=== PATIENT | female | born 1955 | race Caucasian/White ===

== ENCOUNTER 2017-06-19 07:13 | Day surgery (SDC) | payer OTHER ==
[~2017-06-19 07:13] MED LIST: Buffered Lidocaine 0.9% SYRIN* 5 ML/SYR SYRINGE INTRADERM ONE
[2017-06-19] MEDS ORDERED: ceFAZolin 2 GM PREMIX (*) 2 GM/50 ML BAG IVPB ONE (07:28)
[2017-06-19] MEDS ORDERED: fentaNYL* 50 MCG/ML 2 ML VIAL (100 MCG VIAL) ONE (08:01)
[2017-06-19] MEDS ORDERED: Midazolam* 1 MG/ML 2 ML VIAL (2 MG) ONE (08:02)
[2017-06-19] MEDS ORDERED: Bupivacaine 0.5% SDV PF* 10-30ML VIAL ONE (08:16)
[2017-06-19] MEDS ORDERED: EPINEPHRINE 1 MG/ML 1 ML VIAL ONE (08:16)
[2017-06-19] MEDS ORDERED: Lidocaine 2% PF * 5 ML VIAL ONE (08:34)
[2017-06-19] MEDS ORDERED: Famotidine IV* 10 MG/ML 2 ML (20 mg) ONE (08:50)
[2017-06-19] MEDS ORDERED: Dexamethasone IV* 4 MG/ML 1 ML (4 MG) ONE (08:50)
[2017-06-19] MEDS ORDERED: Ketorolac INJ* 30 MG/ML 1 ML VIAL ONE (08:50)
[2017-06-19] MEDS ORDERED: Propofol* 10 MG/ML 20 ML BTL IV PUSH ONE (08:50)
[2017-06-19] MEDS ORDERED: HYDROmorphone INJ* 1 MG/ML CARPUJECT SYRINGE ONE (08:58)
[2017-06-19] MEDS ORDERED: Ondansetron INJ* 2 MG/ML VIAL IV PRN (09:21)
[2017-06-19] MEDS ORDERED: PROCHLORPERAZINE INJ 5 MG/ML 2 ML VIAL IV PRN (09:21)
[2017-06-19] MEDS ORDERED: HYDROcodone/ACETAMIN 5-325 MG* 1 TAB PO PRN (09:21)
[2017-06-19] MEDS ORDERED: fentaNYL* 50 MCG/ML 2 ML VIAL (100 MCG VIAL) IV PRN (09:21)
[2017-06-19] MEDS ORDERED: DiMENhydriNATE IV* 50 MG/ML VIAL IV PUSH PRN (09:21)
[2017-06-19] MEDS ORDERED: Acetaminophen TAB* 325 MG PO PRN (09:21)
[2017-06-19] MEDS ORDERED: Naloxone* 0.4 MG/ML 1 ML VIAL IV PRN (09:21)
[2017-06-19] MEDS ORDERED: HYDROcodone/ACETAMIN 5-325 MG* 1 TAB ONE (10:00)
[2017-06-19 10:32] VITALS: BP 135/83
--- NOTE | 2017-06-19 20:39 | OP ---
OPERATIVE REPORT: DATE OF OPERATION: 06/19/17 DATE OF : 57 SURGEON: Darci Damon MD WET CLEANER MACHINE: JOE Ortega A physician bricklayer's assistant was required for positioning, knee manipulation, and assistance with instrument ation. ANESTHESIOLOGIST: Michael Rodríguez MD ANESTHESIA: General anesthesia, local anesthesia, 15 cc of 0.5% Marcaine without epinephrine, subcut aneously. PRE-OP DIAGNOSIS: Right knee medial meniscus tear. POST-OP DIAGNOSIS: Right knee medial meniscus tear. OPERATIVE PROCEDURE: 1. Right knee arthroscopic partial medial meniscectomy. 2. Right knee anterior synovectomy, excision of plica. IV FLUIDS: 1200 cc crystalloid. ANTIBIOTICS: Ancef 2 g IV. SPECIMEN: None. IMPLANTS: None. TOURNIQUET TIME: 29 minutes at 300 mmHg. COMPLICATIONS: None. ESTIMATED BLOOD LOSS: 0 cc. 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 As detailed in my history and physical, the patient responded insufficiently to nonoperative manageme nt, full spectrum and opted for surgery. The patient had symptoms consistent with a displaced meniscal tear and MRI showed a displaced fragmen t in the inferomedial gutter from the medial meniscus. I discussed with the patient the risks and potential complications of surgery including bleeding, inf ection, nerve or blood vessel injury, blood clot, knee pain, stiffness, osteoarthritis. DESCRIPTION OF PROCEDURE: Preoperative written consent was obtained. Operative extremity was marked in preoperative holding. The patient was taken to the operating room and placed supine on the opera ting room table. The patient was sedated and LMA was placed by Anesthesia. Tourniquet was placed ar ound the proximal thigh, right but not inflated. The right lower extremity was placed in a distal [facility] circumferential mendoza for arthroscopy. The table was elevated and the foot of the table was gisela pped. The right lower extremity was prepped with ChloraPrep. The knee was draped. Surgical time-ou t performed. Esmarch was applied and tourniquet was elevated to 300 mmHg. An anterolateral knee arthroscopy portal was established using standard technique. Diagnostic arthros copy was commenced. Significant synovitis was noted about the patellofemoral compartment, which was noted to be somewhat tight, without much room. There was a medial plica noted. I then proceeded to the medial compartment. There were some diffuse grade 1 and some grade 2 changes to the medial femora l condyle. I examined medial meniscus. It looked like there was some irregularity about the junctio n of the body in the posterior horn as suspected preoperatively. I established the anteromedial knee arthroscopy portal under direct visualization. I entered the prob e. The probe removed displaced meniscal fragment from inferior into medial compartment. I took phot ographs. I debrided medial meniscus back to a stable rim of tissue working through the anteromedial and then a nterolateral portal. I confirmed the stability of the meniscus. There was vertical piece of tissue just inferior to the area of the meniscal tear that may have repre sented a component of deep MCL versus some additional displaced meniscal fragment. I cut that with m eniscal biter and I cleared no further displaced meniscal tear in the inferomedial gutter. Next, I continued diagnostic arthroscopy. I removed some anterior synovium, inflamed and ligamentum mucosa in the intercondylar notch. I looked at the lateral compartment and no pathology there, no me niscal tear or articular cartilage injury. I then returned to the patellofemoral compartment. Still much of synovitis there. With the knee in some flexion, removed some synovitis. Then, enabled excell ent visualization of patellofemoral compartment. Only articular cartilage damage was noted on the fa r medial part of the trochlear groove. The patient had a small area of type 2 injury. It appeared s table. I removed fluid and the instruments from knee. I closed skin incisions with [id number] and 12 stitches using nylon 4-0 suture. I placed 15 cc of Marcaine 0.5% without epinephrine in subcutaneous tissues. Xeroform, 4x4s, sterile Webril, nonste rile Webril. Darian bandage from foot to proximal thigh. Cooling unit. DISPOSITION: The patient will be discharged home with Percocet for pain control and aspirin for DVT prophylaxis. She will follow up with me in 10 to 14 days postoperatively. Wean off of crutches as t olerated. [id number]/[facility] #: [id number]
== END 2017-06-19 11:11 | disposition home or self-care (01) ==
LOC: OR 07:13
PROVIDERS: ATTEND Orthopaedic Surgery
DX: S83.241A Other tear of medial meniscus, current injury, right knee, initial encounter (principal); M67.51 Plica syndrome, right knee; J45.990 Exercise induced bronchospasm; M10.9 Gout, unspecified; Z87.891 Personal history of nicotine dependence; F41.9 Anxiety disorder, unspecified; X50.9XXA Other and unspecified overexertion or strenuous movements or postures, initial encounter; Y93.02 Activity, running; Y92.9 Unspecified place or not applicable
CPT/HCPCS: J0690; J1100; J1170; J1885; J2250; J2704; J3010